=== PATIENT | male | born 1960 | race Caucasian/White ===

== ENCOUNTER 2017-06-13 16:00 | Inpatient (IN) | payer OTHER ==
[~2017-06-13] VITALS: Ht 147.3 cm; Wt 51.6 kg
[2017-06-13 16:59] LABS: BASOPHIL (%) 0 % (0-1); EOSINOPHIL (%) 0.1 % (0-5); HEMATOCRIT 45.8 % (38.0-50.0); HEMOGLOBIN 15.5 G/DL (12.5-16.6); IMMATURE GRANULOCYTE (%) 0.5 % (0.0-0.7); LYMPHOCYTE (%) 8.6 % (15-42); LYMPHOCYTE COUNT 1.1 K/uL (1.0-2.8); MCH 30.2 PG (29.0-34.0); MCHC 33.8 G/DL (30.0-36.0); MCV 89.3 FL (86-99); MONOCYTE (%) 9.2 % (3-12); MONOCYTE COUNT 1.1 K/uL (0-0.8); NEUTROPHIL (%) 81.6 % (45-76); NEUTROPHIL COUNT 10.1 K/uL (1.8-6.4); PLATELET COUNT 240 K/uL (156-360); RBC DIS.WIDTH-CV 12.6 % (11.8-14.6); RBC DIS.WIDTH-SD 41.7 % (39-53); RED BLOOD COUNT 5.13 M/uL (4.00-5.50); WHITE BLOOD COUNT 12.3 K/uL (4.1-10.2)
[2017-06-13 17:08] LABS: INTER. NORMALIZED RATIO 1.2
[2017-06-13 17:11] LABS: PTT 29.9 SEC (25-37)
[2017-06-13 17:13] LABS: CHLORIDE 106 mEq/L (99-109); POTASSIUM 4.1 mEq/L (3.7-5.4); SODIUM 142 mEq/L (136-147)
[2017-06-13 17:14] LABS: MAGNESIUM 2.1 mg/dL (1.3-2.7)
[2017-06-13 17:15] LABS: GLUCOSE 142 mg/dL (70-99)
[2017-06-13 17:19] LABS: CREATININE 0.7 mg/dL (0.6-1.3)
[2017-06-13 17:20] LABS: UREA NITROGEN (BUN) 23 mg/dL (9-23)
[2017-06-13 17:23] LABS: GFR ESTIMATE (CALCULATED) > 59 mL/min/ (58.99-99999)
[2017-06-13 17:32] LABS: TROP-I INTERPRETATION NEGATIVE; TROPONIN-I 0.01 ng/mL (0.0-0.30)
[2017-06-13 18:01] LABS: APPEARANCE SL.HAZY ((CLEAR)); BILIRUBIN NEGATIVE; BLOOD NEGATIVE; COLOR AMBER ((YELLOW)); GLUCOSE (STRIP) NEGATIVE; KETONES 20; LEUKOCYTES NEGATIVE; NITRITE NEGATIVE; PROTEIN (STRIP) 30; SPECIFIC GRAVITY 1.034 (1.000-1.030)
[2017-06-13 18:03] LABS: BACTERIA NONE SEEN /HPF; EPITHELIAL CELLS RARE /HPF; MUCUS TRACE /LPF; RED BLOOD CELLS 0-5 /HPF (0-5); UCUL ADDED? NO; WHITE BLOOD CELLS 0-5 /HPF (0-5)
[2017-06-13 18:14] LABS: THC CANNABINOIDS NEGATIVE (50 ng/mL)
[2017-06-13 18:15] LABS: AMPHETAMINE NEGATIVE (500 ng/mL); BARBITURATES NEGATIVE (200 ng/mL); BENZODIAZEPINES PRESUMPTIVE POSITIVE (150 ng/mL); BUPRENORPHINE NEGATIVE (10 ng/mL); COCAINE NEGATIVE (150 ng/mL); METHADONE NEGATIVE (200 ng/mL); METHAMPHETAMINE NEGATIVE (500 ng/mL); OPIATES (MORPHINE) NEGATIVE (100 ng/mL); OXYCODONE NEGATIVE (100 ng/mL); PHENCYCLIDINE NEGATIVE (25 ng/mL); PROPOXYPHENE NEGATIVE (300 ng/mL); TRICYCLIC ANTIDEPRESSANTS NEGATIVE (300 ng/mL)
[2017-06-13] MEDS ORDERED: TOPROL XL25 MG PO (19:36)
[2017-06-13] MEDS ORDERED: PRUNE JUICE PO (19:39)
[2017-06-13] MEDS ORDERED: MILK OF MAGN PO (19:44)
[2017-06-13] MEDS ORDERED: ENEMA133 M2 PR (19:45)
[2017-06-13] MEDS ORDERED: SUPPOSITORY1 EACH PR (19:46)
[2017-06-13 20:00] LABS: BENZODIAZEPINES, URINE SCREEN POSITIVE (200 ng/mL)
[2017-06-14 00:24] VITALS: BP 139/72
[2017-06-14 04:00] VITALS: BP 151/90
[2017-06-14 08:20] VITALS: BP 132/83
[2017-06-14 11:43] VITALS: BP 122/67
[2017-06-14 16:48] VITALS: BP 118/76
[2017-06-15 01:25] VITALS: BP 159/88
[2017-06-15 07:40] VITALS: BP 143/87
[2017-06-15 11:00] VITALS: BP 131/78
[2017-06-15 15:25] VITALS: BP 141/88
[2017-06-15 20:21] VITALS: BP 139/74
[2017-06-15 23:17] VITALS: BP 144/72
[2017-06-16] VITALS (7 sets, daily range): BP systolic 122–153; BP diastolic 77–90
[2017-06-16 08:16] LABS: HEMATOCRIT 38.5 % (38.0-50.0); MCH 29.5 PG (29.0-34.0); MCHC 33.2 G/DL (30.0-36.0); MCV 88.7 FL (86-99); PLATELET COUNT 212 K/uL (156-360); RBC DIS.WIDTH-SD 39.3 % (39-53); RED BLOOD COUNT 4.34 M/uL (4.00-5.50); WHITE BLOOD COUNT 4.9 K/uL (4.1-10.2)
[2017-06-16 08:17] LABS: HEMOGLOBIN 12.8 G/DL (12.5-16.6)
[2017-06-16 09:13] LABS: ALBUMIN 3.4 G/DL (3.2-4.8); ALKALINE PHOSPHATASE 49 IU/L (3-129); AST (GOT) 11 IU/L (2-34); CHLORIDE 104 MEQ/L (99-109); CREATININE 0.5 MG/DL (0.6-1.3); GFR ESTIMATE (CALCULATED) > 59 mL/min/ (58.99-99999); POTASSIUM 3.4 MEQ/L (3.7-5.4); SODIUM 139 MEQ/L (136-147); TOTAL BILIRUBIN 0.8 MG/DL (0.0-1.0); TOTAL PROTEIN 5.4 G/DL (6.4-8.3); UREA NITROGEN (BUN) 10 mg/dL (9-23)
[2017-06-16 09:15] LABS: ALT (GPT) < 3 IU/L (3-49); GLUCOSE 103 mg/dL (70-99)
[2017-06-17 07:40] VITALS: BP 150/91
[2017-06-17 15:00] VITALS: BP 129/79
[2017-06-18 00:03] VITALS: BP 137/96
[2017-06-18 07:29] VITALS: BP 140/74
[2017-06-18 15:17] VITALS: BP 115/63
[2017-06-19 00:13] VITALS: BP 124/82
[2017-06-19 06:52] LABS: CHLORIDE 100 MEQ/L (99-109); CREATININE 0.7 MG/DL (0.6-1.3); GFR ESTIMATE (CALCULATED) > 59 mL/min/ (58.99-99999); GLUCOSE 140 mg/dL (70-99); POTASSIUM 3.4 MEQ/L (3.7-5.4); SODIUM 138 MEQ/L (136-147); UREA NITROGEN (BUN) 15 mg/dL (9-23)
[2017-06-19 07:44] VITALS: BP 111/60
[2017-06-19] MEDS ORDERED: ROPINIROLE HCL0.5 MG PO (07:53)
[2017-06-19] MEDS ORDERED: CARBIDOPA/LEVO1 EACH PO (07:53)
== END 2017-06-19 14:32 | DRG 101 ==
LOC: EME 16:00 → EDOF 20:17 → 5EAST 20:17 → ENRESERV 20:34 → CANRESERV 22:26 → ENRESERV 22:26 → 5EAST 23:40 → EDOF 23:40 → ENPENDDIS 06-19 → EDPENDDISTM 06-19 14:00 → 5EAST 06-19 14:32
PROVIDERS: Emergency Medicine; Family Medicine; Internal Medicine
DX: G40.89 Other seizures (principal); G24.02 Drug induced acute dystonia; T42.8X5A Adverse effect of antiparkinsonism drugs and other central muscle-tone depressants, initial encounter; G20 Parkinson's disease; F43.21 Adjustment disorder with depressed mood; I10 Essential (primary) hypertension; M41.9 Scoliosis, unspecified; G89.29 Other chronic pain; R41.82 Altered mental status, unspecified; Z82.0 Family history of epilepsy and other diseases of the nervous system
CPT/HCPCS: 70450; 71045; 80048; 80053; 81003; 83605; 83735; 84484; 84999; 85025; 85027; 85610; 85730; 87040; 87493; 92526 GN; 92610 GN; 93005; 95819; J1650; J2060; J7030